=== PATIENT | female | born 1985 | race Caucasian/White ===

== ENCOUNTER 2021-08-31 17:04 | Emergency (ER) | payer OTHER, SELFPAY ==
[2021-08-31 17:23] VITALS: BP 149/107; PULSE 100; RESP 18; TEMP 37.2; O2SAT 100; BMI 45.9
--- NOTE | 2021-08-31 18:32 | ED.WOUNDLAC ---
HPI - Wound/Laceration General Chief Complaint: Wound/Laceration Stated Complaint: R leg lac Time Seen by Provider: 08/31/21 18:22 Source: patient Mode of arrival: ambulatory Limitations: no limitations History of Present Illness HPI narrative: 36-year-old female presents for evaluation for laceration that is on the lower portion of her right leg. States that she was trying to climb over a fence, her flip-flops slipped out from under her and she scraped her leg up against the fencing material. It is unknown when her last Tdap vaccine was updated. Patient does not report any other injuries, and has concerns about infection because she has diabetes. Onset (ago): hour(s) (Within the hour of arrival) Extremity Location: right: lower leg Place: outdoors Patient tetanus UTD: No Context: accidental Associated symptoms: pain Related Data Allergies Allergy/AdvReac Type Severity Reaction Status Date / Time No Known Allergies Allergy Unverified 11/24/19 15:44 Review of Systems Review of Systems: Constitutional: No Fever, No Chills ENT/Mouth: No Ear Pain, No Hoarseness, No sore throat Eyes: No Eye Pain, No Swelling, No Redness, No Foreign Body Cardiovascular: No Chest Pain, No SOB Respiratory: No Cough, No Dyspnea Gastrointestinal: No Nausea, No Vomiting, No Diarrhea, No abdominal Pain Genitourinary: No Dysuria, No Hematuria Musculoskeletal: No joint pain, No Myalgias, No Joint Swelling Skin: Positive right lower leg Skin lacerations, No rash Neuro: No Weakness, No Numbness, No Paresthesias, No Loss of Consciousness, No Dizziness, No Headache Psych: No Anxiety/Panic, No Depression Heme/Lymph: no easy bruising, no Lymphadenopathy Endocrine: No Polyuria, No Polydipsia Yes all other systems are reviewed and are negative [facility] Past Medical History Attestation statement: The following information was validated with the patient. Source: old records reviewed Social History Social History Advance Directives: No Advance Directives Information Provided: No Physical Exam Vital Signs: Vital Signs: Last Vital Signs Temp 98.9 F 08/31/21 17:23 Pulse 100 08/31/21 17:23 Resp 18 08/31/21 17:23 BP 149/107 H 08/31/21 17:23 Pulse Ox 100 08/31/21 17:23 O2 Del Method 08/31/21 17:23 BMI result Body Mass Index 45.9 Appearance: Alert. Oriented X3. No acute distress. Eyes: Pupils equal, round and reactive to light. ENT: Pharynx normal. Neck: Normal inspection. Neck supple. CVS: Normal heart rate and rhythm. Pulses normal. Respiratory: No respiratory distress. Breath sounds normal. Abdomen: Soft and nontender. Skin: 5 cm x 0.2 cm superficial abrasion and 1 cm x 0.2 cm superficial abrasion to the right extremity lower extremity Normal skin color. Normal skin turgor. Extremities: No lower extremity edema. Moves all extremities against resistance. Neuro: No motor deficit. No sensory deficit. Cranial nerves 2-12 intact. Course Course Course Narrative: 36-year-old female presents with 2 lacerations that are superficial to the right lower extremity. Does not require sutures or Steri-Strips. Will clean with Betadine and sterile saline. Will update Tdap vaccine today. Patient verbalized understanding of and agrees to plan of care discharge home. Verbalized understanding of signs symptoms indicating need for emergent intervention. MDM - Wound/Laceration Differential Diagnosis Differential diagnosis: Likely abrasion Medical Records Attestation: I reviewed the patient's medical records. Discharge Plan Discharge Clinical Impression: Avulsion of skin Patient Disposition: Home, Self-Care Instructions: Skin Avulsion (ED) Additional Instructions: You were evaluated for a wound to your right lower extremity. This is a skin avulsion and cannot be sutured. Please keep it clean and dry. Apply bacitracin twice a day. We updated your Tdap vaccine today. Monitor for signs and symptoms indicating infection. If you notice any redness, purulent drainage, fevers or chills please return for evaluation. Thank you for choosing this emergency department for evaluation. Please follow-up with primary care physician as needed. Return to the emergency department for any new, concerning, or worsening symptoms. Interventions: ED Discharge Assessment Last Done: 08/31/21 19:15 Discharge Date/Time: 08/31/21 19:18
== END 2021-08-31 19:18 | disposition home or self-care (01) ==
PROVIDERS: Emergency Provider Emergency Medicine; PCP Internal Medicine
DX: S81.811A Laceration without foreign body, right lower leg, initial encounter (principal); W45.8XXA Other foreign body or object entering through skin, initial encounter; Y93.9 Activity, unspecified; Y92.9 Unspecified place or not applicable; Y99.9 Unspecified external cause status
CPT/HCPCS: 90471; 99283; 99284